=== PATIENT | female | born 1955 | race American Indian/Alaskan Native ===

== ENCOUNTER 2021-10-09 12:42 | Emergency (ER) | payer MEDICARE, OTHER ==
[~2021-10-09] VITALS: Ht 165.1 cm; Wt 54.0 kg
[~2021-10-09 12:42] MED LIST: AZIT500 PO; CLON.1 PO; Catapres0.1 MG PO; DIAZ10 PO; DIAZ5; DIAZ5 PO; DIPATR PO; ESCI10 PO; ESTR.625 PO; ESTR2 PO; FLUO10 PO; GUAI600T33; HYDACE10B PO; HYDACE5; HYDACE5 PO; HYDCHL25 PO; IBUP400 PO; OXYACE5T; OXYC10ER PO; OXYC10TA19 PO; OXYC5 PO; PROC10 PO; PROC25S PR; PROM25 PO; RXPROM25 PO; SPIHYD PO; Sudogest30 MG PO; WATER PILL; Xanax0.5 MG PO; Zofran Odt4 MG SL; [UNRECOGNIZED DRUG - OTHER]
[2021-10-09] MEDS ORDERED: AMOCLA875 PO (14:13)
== END 2021-10-09 14:17 | disposition home or self-care (01) ==
LOC: ER 12:42
DX: J32.9 Chronic sinusitis, unspecified (principal); Z88.2 Allergy status to sulfonamides; Z79.899 Other long term (current) drug therapy; J44.9 Chronic obstructive pulmonary disease, unspecified; I10 Essential (primary) hypertension; F43.10 Post-traumatic stress disorder, unspecified; F17.200 Nicotine dependence, unspecified, uncomplicated
CPT/HCPCS: 99283

== ENCOUNTER 2023-07-31 16:00 | Emergency (ER) | payer MEDICARE, OTHER ==
[~2023-07-31] VITALS: Ht 165.1 cm; Wt 47.6 kg
[~2023-07-31 16:00] MED LIST changes: +AMOCLA875 PO
[2023-07-31 16:51] LABS: BASOPHILS ABSOLUTE AUTO 0.03 K/mm3 (0.00-0.23); BASOPHILS PERCENT AUTO 0 % (0-2); EOSINOPHILS ABSOLUTE AUTO 0.01 K/mm3 (0.00-0.68); EOSINOPHILS PERCENT AUTO 0 % (0-6); Hematocrit 44.5 % (33.0-51.0); Hemoglobin 15.2 g/dL (11.5-16.0); IMMATURE GRAN ABSOLUTE AUTO 0.02 K/mm3 (0.00-0.10); IMMATURE GRAN PERCENT AUTO 0 % (0-1); LYMPHOCYTES ABSOLUTE AUTO 1.21 K/mm3 (0.84-5.20); LYMPHOCYTES PERCENT AUTO 16 % (21-46); MONOCYTES ABSOLUTE AUTO 0.46 K/mm3 (0.16-1.47); MONOCYTES PERCENT AUTO 6 % (4-13); Mean Corpuscular HGB 28.4 pg (26.0-34.0); Mean Corpuscular HGB Conc 34.2 g/dL (31.5-36.5); Mean Corpuscular Volume 83 fL (80-100); Mean Platelet Volume 9.1 fL (9.1-12.4); NEUTROPHILS ABSOLUTE AUTO 5.84 K/mm3 (1.96-9.15); NEUTROPHILS PERCENT AUTO 77 % (41-73); Platelet Count 292 K/mm3 (150-400); RDW Coefficient Variation 13.1 % (11.7-14.2); RDW Standard Deviation 39.2 fL (35.1-46.3); Red Blood Cell Count 5.35 M/mm3 (3.80-5.20); White Blood Cell Count 7.57 K/mm3 (4.00-11.30)
[2023-07-31 17:37] LABS: Albumin, Blood 3.4 g/dL (3.4-5.0); Albumin/Globulin Ratio 0.8 (0.8-1.8); Bilirubin, Total 0.7 mg/dL (0.1-1.0); Bun/Creatinine Ratio 28.6 (12.0-20.0); Calcium, Blood 9.4 mg/dL (8.5-10.1); Creatinine, Blood 0.77 mg/dL (0.40-1.00); Globulin, Blood 4.4 g/dL (2.2-4.0); Potassium, Blood 3.3 mmol/L (3.5-5.5); Total Protein, Blood 7.8 g/dL (6.4-8.2)
[2023-07-31] MEDS ORDERED: Zithromax250 MG PO (19:10)
[2023-07-31] MEDS ORDERED: Prednisone20 MG PO (19:10)
[2023-07-31] MEDS ORDERED: ALBUTEROL2.5 MG/0.5 INH (19:10)
[2023-07-31 19:15] VITALS: BP 122/82
== END 2023-07-31 19:24 | disposition home or self-care (01) ==
LOC: ER 16:00
PROVIDERS: Physician Assistant
DX: J44.1 Chronic obstructive pulmonary disease with (acute) exacerbation (principal); I10 Essential (primary) hypertension; F31.9 Bipolar disorder, unspecified; Z88.2 Allergy status to sulfonamides; Z79.899 Other long term (current) drug therapy
CPT/HCPCS: 71046; 80053; 85025; 94640; 94664; 96374; 99285-25; A9270; J2930; J7512

== ENCOUNTER 2023-09-13 13:33 | Emergency (ER) | payer MEDICARE, OTHER ==
[~2023-09-13] VITALS: Ht 165.1 cm; Wt 56.7 kg
[~2023-09-13 13:33] MED LIST changes: +ALBUTEROL2.5 MG/0.5 INH; +Prednisone20 MG PO; +Zithromax250 MG PO
[2023-09-13] MEDS ORDERED: HYDHCL25 PO (15:48)
[2023-09-13] MEDS ORDERED: HyDROXyzine HCl 25 MG Tab PO ONE (15:50)
[2023-09-13 15:51] VITALS: BP 139/90
== END 2023-09-13 15:50 | disposition home or self-care (01) ==
LOC: ER 13:33
DX: F41.9 Anxiety disorder, unspecified (principal); F17.200 Nicotine dependence, unspecified, uncomplicated; J44.9 Chronic obstructive pulmonary disease, unspecified; I10 Essential (primary) hypertension; F31.9 Bipolar disorder, unspecified; M79.7 Fibromyalgia; M19.90 Unspecified osteoarthritis, unspecified site; F43.10 Post-traumatic stress disorder, unspecified; Z79.2 Long term (current) use of antibiotics; Z79.52 Long term (current) use of systemic steroids; Z79.899 Other long term (current) drug therapy; Z88.2 Allergy status to sulfonamides
CPT/HCPCS: 99282; A9270

== ENCOUNTER 2023-11-14 07:27 | Emergency (ER) | payer MEDICARE, OTHER ==
[~2023-11-14] VITALS: Ht 165.1 cm; Wt 48.5 kg
[~2023-11-14 07:27] MED LIST changes: +ALPR.25 PO; +HYDHCL25 PO; +Percocet 5-3251 EACH PO
[2023-11-14] MEDS ORDERED: HYDROmorphone HCl/Pf 1MG SYR IV ONE (07:50)
[2023-11-14 08:03] LABS: BASOPHILS ABSOLUTE AUTO 0.07 K/mm3 (0.00-0.23); BASOPHILS PERCENT AUTO 1 % (0-2); EOSINOPHILS ABSOLUTE AUTO 0.28 K/mm3 (0.00-0.68); EOSINOPHILS PERCENT AUTO 2 % (0-6); Hematocrit 41.9 % (33.0-51.0); Hemoglobin 14.5 g/dL (11.5-16.0); IMMATURE GRAN ABSOLUTE AUTO 0.06 K/mm3 (0.00-0.10); IMMATURE GRAN PERCENT AUTO 1 % (0-1); LYMPHOCYTES ABSOLUTE AUTO 1.95 K/mm3 (0.84-5.20); LYMPHOCYTES PERCENT AUTO 15 % (21-46); MONOCYTES ABSOLUTE AUTO 0.63 K/mm3 (0.16-1.47); MONOCYTES PERCENT AUTO 5 % (4-13); Mean Corpuscular HGB 28.5 pg (26.0-34.0); Mean Corpuscular HGB Conc 34.6 g/dL (31.5-36.5); Mean Corpuscular Volume 82 fL (80-100); Mean Platelet Volume 8.8 fL (9.1-12.4); NEUTROPHILS ABSOLUTE AUTO 9.78 K/mm3 (1.96-9.15); NEUTROPHILS PERCENT AUTO 77 % (41-73); Platelet Count 440 K/mm3 (150-400); RDW Coefficient Variation 13.7 % (11.7-14.2); RDW Standard Deviation 41.3 fL (35.1-46.3); Red Blood Cell Count 5.09 M/mm3 (3.80-5.20); White Blood Cell Count 12.77 K/mm3 (4.00-11.30)
[2023-11-14] MEDS ORDERED: MONT10T PO (08:13)
[2023-11-14] MEDS ORDERED: ESCI10 PO (08:13)
[2023-11-14 08:22] LABS: Albumin, Blood 3.5 g/dL (3.4-5.0); Albumin/Globulin Ratio 0.9 (0.8-1.8); Bilirubin, Total 0.5 mg/dL (0.1-1.0); Bun/Creatinine Ratio 27.7 (12.0-20.0); Calcium, Blood 9.7 mg/dL (8.5-10.1); Creatinine, Blood 0.83 mg/dL (0.40-1.00); Globulin, Blood 4.1 g/dL (2.2-4.0); Potassium, Blood 3.2 mmol/L (3.5-5.5); Total Protein, Blood 7.6 g/dL (6.4-8.2)
[2023-11-14 09:26] VITALS: BP 145/102
[2023-11-14 10:08] LABS: Source, Urine Clean Catch
[2023-11-14 10:15] LABS: Appearance, Urine Clear (Clear); Bilirubin, Urine Neg (Neg); Blood, Urine 2+ (Neg); Color, Urine Yellow (P-Yellow); Glucose Qualitative, Urine Neg (Neg); Ketones, Urine Neg (Neg); Leukocyte Esterase, Urine Neg (Neg); Nitrite, Urine Neg (Neg); Protein, Urine 2+ (Neg); Urobilinogen, Urine NORM (Normal)
[2023-11-14 10:23] LABS: Bacteria Rare /hpf; Squamous Epithelial Cells Few /hpf (Few); White Blood Cells, Urine 0-2 /hpf (0-5)
[2023-11-14] MEDS ORDERED: Lidocaine 4% 1 Patch TOP ONE (11:05)
[2023-11-14] MEDS ORDERED: Cyclobenzaprine HCl 10 MG Tab PO ONE (11:05)
[2023-11-14] MEDS ORDERED: Acetaminophen 325 MG TABLET PO PRN (12:30)
[2023-11-14] MEDS ORDERED: Potassium Chloride 20 MEQ TabCR PO ONE (13:00)
[2023-11-14] MEDS ORDERED: Sennosides 8.6 MG Tab PO SCH (21:00)
[2023-11-14] MEDS ORDERED: Docusate Sodium 100 MG Cap PO SCH (21:00)
[2023-11-15] MEDS ORDERED: Enoxaparin 40 MG/0.4 ML SYR SC SCH (09:00)
== END 2023-11-14 12:31 | disposition home or self-care (01) ==
LOC: ER 07:27
PROVIDERS: Emergency Medicine
DX: R07.9 Chest pain, unspecified (principal); R10.12 Left upper quadrant pain; I10 Essential (primary) hypertension; J44.89 Other specified chronic obstructive pulmonary disease; F43.10 Post-traumatic stress disorder, unspecified; F17.200 Nicotine dependence, unspecified, uncomplicated; Z88.8 Allergy status to other drugs, medicaments and biological substances; Z88.2 Allergy status to sulfonamides
CPT/HCPCS: 71045; 74177; 80053; 81001; 84484; 85025; 93005; 93010; 96374-59; 99285-25; A9270; J1170; Q9967

== ENCOUNTER 2024-01-15 16:36 | Emergency (ER) | payer MEDICARE, OTHER ==
[~2024-01-15] VITALS: Ht 165.1 cm; Wt 47.6 kg
[~2024-01-15 16:36] MED LIST changes: +MONT10T PO
[2024-01-15 16:54] VITALS: BP 122/98
== END 2024-01-15 19:10 | disposition home or self-care (01) ==
LOC: ER 16:36
DX: M19.032 Primary osteoarthritis, left wrist (principal); R20.2 Paresthesia of skin; F43.10 Post-traumatic stress disorder, unspecified; J45.909 Unspecified asthma, uncomplicated; J44.9 Chronic obstructive pulmonary disease, unspecified; I10 Essential (primary) hypertension; F17.200 Nicotine dependence, unspecified, uncomplicated; Z87.81 Personal history of (healed) traumatic fracture; Z79.899 Other long term (current) drug therapy; Z88.2 Allergy status to sulfonamides; Z88.8 Allergy status to other drugs, medicaments and biological substances
CPT/HCPCS: 73110; 99283-25

== ENCOUNTER 2025-06-13 09:23 | Inpatient (IN) | payer MEDICARE, OTHER ==
[~2025-06-13] VITALS: Ht 162.6 cm; Wt 40.2 kg
[2025-06-13] MEDS ORDERED: Albuterol 2.5 MG/3 ML VIAL INH SCH (09:50)
[2025-06-13] MEDS ORDERED: CefTRIAXone Sodium 1,000 MG in NS 50 ML IV ONE (09:50)
[2025-06-13 09:53] LABS: BASOPHILS ABSOLUTE AUTO 0.02 K/mm3 (0.00-0.23); BASOPHILS PERCENT AUTO 0 % (0-2); EOSINOPHILS ABSOLUTE AUTO 0.01 K/mm3 (0.00-0.68); EOSINOPHILS PERCENT AUTO 0 % (0-6); Hematocrit 43.1 % (33.0-51.0); Hemoglobin 14.5 g/dL (11.5-16.0); IMMATURE GRAN ABSOLUTE AUTO 0.05 K/mm3 (0.00-0.10); IMMATURE GRAN PERCENT AUTO 1 % (0-1); LYMPHOCYTES ABSOLUTE AUTO 1.37 K/mm3 (0.84-5.20); LYMPHOCYTES PERCENT AUTO 17 % (21-46); MONOCYTES ABSOLUTE AUTO 0.37 K/mm3 (0.16-1.47); MONOCYTES PERCENT AUTO 5 % (4-13); Mean Corpuscular HGB Conc 33.6 g/dL (31.5-36.5); Mean Corpuscular Volume 86 fL (80-100); NEUTROPHILS ABSOLUTE AUTO 6.30 K/mm3 (1.96-9.15); NEUTROPHILS PERCENT AUTO 78 % (41-73); NRBC ABSOLUTE 0.00 K/mm3 (0.00-0.02); NRBC Auto 0.0 /100 WBC (0.0-0.2); Platelet Count 258 K/mm3 (150-400); RDW Coefficient Variation 13.1 % (11.7-14.2); RDW Standard Deviation 41.1 fL (35.1-46.3)
[2025-06-13 10:24] LABS: Alanine Aminotransfer (ALT/SGP 25.0 U/L (12-78); Albumin, Blood 3.0 g/dL (3.4-5.0); Albumin/Globulin Ratio 0.8 (0.8-1.8); Anion Gap 9.0 mmol/L (3-11); Aspartate Aminotrans (AST/SGOT 54.0 U/L (12-37); Bilirubin, Total 0.7 mg/dL (0.1-1.0); Blood Urea Nitrogen 24.0 mg/dL (8-24); CO2, Blood 28.0 mmol/L (21-32); Calcium, Blood 9.0 mg/dL (8.5-10.1); Chloride, Blood 98.0 mmol/L (98-108); Creatinine, Blood 0.71 mg/dL (0.40-1.00); Globulin, Blood 3.9 g/dL (2.2-4.0); Glucose, Blood 124.0 mg/dL (70-99); Potassium, Blood 3.6 mmol/L (3.5-5.5); Sodium, Blood 131.0 mmol/L (136-145); Total Protein, Blood 6.9 g/dL (6.4-8.2)
[2025-06-13 11:26] LABS: Influenza A, PCR NEGATIVE (NEGATIVE); Influenza B, PCR NEGATIVE (NEGATIVE); Resp Syncytial Virus, PCR NEGATIVE (NEGATIVE)
[2025-06-13 11:34] LABS: SARS-Cov-2 (COVID-19) PCR, MMC POSITIVE (NEGATIVE)
[2025-06-13] MEDS ORDERED: DIAZEPAM2 M2 PO (11:59)
[2025-06-13] MEDS ORDERED: HYDCHL25 PO (12:00)
[2025-06-13] MEDS ORDERED: HYDROcodone 5-APAP 325 TAB PO PRN (12:35)
[2025-06-13] MEDS ORDERED: Ipratropium/Albuterol SulF 2.5-0.5MG/3 ML Amp INH SCH (12:45)
[2025-06-13] MEDS ORDERED: NS 1,000 ML IV SCH (13:00)
[2025-06-13] MEDS ORDERED: Remdesivir (EUA) 200 MG in NS 250 ML IV ONE (13:25)
[2025-06-13] MEDS ORDERED: NS 1,000 ML IV ONE (14:21)
[2025-06-13 14:23] VITALS: BP 142/91
--- NOTE | 2025-06-13 18:44 | NUR ---
SHIFT SUMMARY PATIENT ALERT AND ORIENTED X4. PATIENT MAKE NEEDS KNOWN. PLEASANT AND COOPERATIVE WITH CARE. NO ACUTE CHANGE. INFUSING NS AT 75ML/HR. PATIENT ON SBA D/T SOB, LINES/CORDS ON 3.5 L/HIGH FLOW NC. SELF REPOSITION DURING SHIFT. BED LOCKED AND IN LOWEST POSITION, CALL LIGHT WITHIN REACH.
[2025-06-13 19:41] VITALS: BP 163/114
[2025-06-13] MEDS ORDERED: HydrALAZINE HCl 20 MG / ML 1ML Vial IV ONE (20:55)
[2025-06-13] MEDS ORDERED: Lactobacil 2-S.Thermo-Bifido 1 1 Cap PO SCH (21:00)
[2025-06-13 21:37] LABS: Alanine Aminotransfer (ALT/SGP 25.0 U/L (12-78); Albumin, Blood 2.9 g/dL (3.4-5.0); Albumin/Globulin Ratio 0.8 (0.8-1.8); Anion Gap 8.0 mmol/L (3-11); Aspartate Aminotrans (AST/SGOT 30.0 U/L (12-37); Bilirubin, Total 0.5 mg/dL (0.1-1.0); Blood Urea Nitrogen 31.0 mg/dL (8-24); CO2, Blood 33.0 mmol/L (21-32); Calcium, Blood 8.7 mg/dL (8.5-10.1); Chloride, Blood 98.0 mmol/L (98-108); Creatinine, Blood 0.81 mg/dL (0.40-1.00); Globulin, Blood 3.7 g/dL (2.2-4.0); Glucose, Blood 174.0 mg/dL (70-99); Potassium, Blood 3.1 mmol/L (3.5-5.5); Sodium, Blood 136.0 mmol/L (136-145); Total Protein, Blood 6.6 g/dL (6.4-8.2)
[2025-06-13 21:55] VITALS: BP 144/79
[2025-06-14 00:04] VITALS: BP 146/80
--- NOTE | 2025-06-14 03:04 | NUR ---
SHIFT SUMMARY: PT AOX4. BP WAS ELEVATED AT 163/114, ONE TIME HYDRALAZINE GIVEN. PT STATED THAT SHE HASNT TAKEN HER BP MEDICATION FOR THE LAST 4 DAYS AND THAT SHE WILL TAKE IT NEEDED. EDUCATED ON THE DANGERS OF NOT TAKING MEDICATION PRESCRIBED. BP LOWERED TO 146/80. PT IS RESTING IN BED. NO COMPLAINTS OF PAIN. PT IS ON 4L O2 VIA NC. CALL LIGHT IS WITHIN REACH. BED IS LOW AN LOCKED.
[2025-06-14 04:41] VITALS: BP 150/85
[2025-06-14 05:11] LABS: Hematocrit 36.3 % (33.0-51.0); Hemoglobin 12.1 g/dL (11.5-16.0); Mean Corpuscular HGB Conc 33.3 g/dL (31.5-36.5); Mean Corpuscular Volume 86 fL (80-100); NRBC ABSOLUTE 0.00 K/mm3 (0.00-0.02); NRBC Auto 0.0 /100 WBC (0.0-0.2); Platelet Count 227 K/mm3 (150-400); RDW Coefficient Variation 13.2 % (11.7-14.2); RDW Standard Deviation 41.1 fL (35.1-46.3)
[2025-06-14 05:47] LABS: BASOPHILS ABSOLUTE MAN 0.00 K/mm3 (0.00-0.23); BASOPHILS PERCENT MAN 0 % (0-2); EOSINOPHILS ABSOLUTE MAN 0.00 K/mm3 (0.00-0.68); EOSINOPHILS PERCENT MAN 0 % (0-6); LYMPHOCYTES ABSOLUTE MAN 0.72 K/mm3 (0.84-5.20); LYMPHOCYTES PERCENT MAN 12 % (21-46); MONOCYTES ABSOLUTE MAN 0.18 K/mm3 (0.16-1.47); MONOCYTES PERCENT MAN 3 % (4-13); NEUTROPHILS ABSOLUTE MAN 5.15 K/mm3 (1.96-9.15); SEG NEUTROPHILS PERCENT MAN 85 % (41-73)
[2025-06-14 06:00] LABS: Anion Gap 10.0 mmol/L (3-11); Blood Urea Nitrogen 31.0 mg/dL (8-24); CO2, Blood 28.0 mmol/L (21-32); Calcium, Blood 8.7 mg/dL (8.5-10.1); Chloride, Blood 101.0 mmol/L (98-108); Creatinine, Blood 0.67 mg/dL (0.40-1.00); Glucose, Blood 169.0 mg/dL (70-99); Magnesium, Blood 1.9 mg/dL (1.6-2.4); Phosphorus, Blood 2.7 mg/dL (2.5-4.9); Potassium, Blood 3.0 mmol/L (3.5-5.5); Sodium, Blood 136.0 mmol/L (136-145)
[2025-06-14 07:55] VITALS: BP 151/84
[2025-06-14] MEDS ORDERED: CefTRIAXone Sodium 1,000 MG in NS 100 ML IV SCH (09:00)
[2025-06-14] MEDS ORDERED: Multivitamins 1 Tab PO SCH (09:00)
[2025-06-14] MEDS ORDERED: Dexamethasone Sodium Phosphate 4 MG/ML 1ML Vial IV SCH (09:00)
[2025-06-14] MEDS ORDERED: Enoxaparin 40 MG/0.4 ML SYR SC SCH (09:00)
[2025-06-14] MEDS ORDERED: Remdesivir (EUA) 100 MG in NS 250 ML IV SCH (12:00)
[2025-06-14 19:13] VITALS: BP 146/83
--- NOTE | 2025-06-15 03:40 | NUR ---
SHIFT SUMMARY: AOX4. VSS, ON RA. LUNG SOUNDS ARE DIMINISHED WITH SOME WHEEZING. PT STATED, "FEELING A LOT BETTER." CALL LIGHT IS WITHIN REACH. BED IS LOW AND LOCKED.
[2025-06-15 04:30] VITALS: BP 145/84
[2025-06-15 06:07] LABS: Hematocrit 35.3 % (33.0-51.0); Hemoglobin 11.8 g/dL (11.5-16.0); Mean Corpuscular HGB Conc 33.4 g/dL (31.5-36.5); Mean Corpuscular Volume 86 fL (80-100); NRBC ABSOLUTE 0.00 K/mm3 (0.00-0.02); NRBC Auto 0.0 /100 WBC (0.0-0.2); Platelet Count 247 K/mm3 (150-400); RDW Coefficient Variation 13.2 % (11.7-14.2); RDW Standard Deviation 41.3 fL (35.1-46.3)
[2025-06-15 06:31] LABS: BASOPHILS ABSOLUTE MAN 0.00 K/mm3 (0.00-0.23); BASOPHILS PERCENT MAN 0 % (0-2); EOSINOPHILS ABSOLUTE MAN 0.00 K/mm3 (0.00-0.68); EOSINOPHILS PERCENT MAN 0 % (0-6); LYMPHOCYTES % ATYPICAL MANUAL 1 % (0-0); LYMPHOCYTES ABSOLUTE MAN 0.85 K/mm3 (0.84-5.20); LYMPHOCYTES PERCENT MAN 9 % (21-46); MONOCYTES ABSOLUTE MAN 0.17 K/mm3 (0.16-1.47); MONOCYTES PERCENT MAN 2 % (4-13); NEUTROPHILS ABSOLUTE MAN 7.54 K/mm3 (1.96-9.15); SEG NEUTROPHILS PERCENT MAN 88 % (41-73)
[2025-06-15 06:35] LABS: Anion Gap 9.0 mmol/L (3-11); Blood Urea Nitrogen 20.0 mg/dL (8-24); CO2, Blood 28.0 mmol/L (21-32); Calcium, Blood 8.8 mg/dL (8.5-10.1); Chloride, Blood 101.0 mmol/L (98-108); Creatinine, Blood 0.57 mg/dL (0.40-1.00); Glucose, Blood 111.0 mg/dL (70-99); Magnesium, Blood 1.8 mg/dL (1.6-2.4); Phosphorus, Blood 2.2 mg/dL (2.5-4.9); Potassium, Blood 3.2 mmol/L (3.5-5.5); Sodium, Blood 135.0 mmol/L (136-145)
[2025-06-15] MEDS ORDERED: Rocuronium Bromide 10 MG/ML 5ML Injection IV ONE (06:58)
[2025-06-15] MEDS ORDERED: Midazolam HCl 1MG / ML 2ML Vial IV ONE (06:58)
[2025-06-15] MEDS ORDERED: Potassium Phosphate Dibasic 15 MM in Dextrose 5% 250 ML IV STA (07:13)
[2025-06-15 08:00] VITALS: BP 143/93
[2025-06-15] MEDS ORDERED: NS 250 ML IV PRN (12:35)
[2025-06-15 16:05] VITALS: BP 182/113
--- NOTE | 2025-06-15 17:49 | NUR ---
SHIFT SUMMARY PT IS A/OX4. ANXIOUS. SBA. PLACED ON 2L NC THIS MORNING, SATS MAINTAINING >92% ON CONT PULSE OX. PT CALLS APPROPRIALTELY USING THE CALL LIGHT.
[2025-06-15 19:49] VITALS: BP 155/111
--- NOTE | 2025-06-15 21:35 | NUR ---
BLOOD PRESSURE NS BP 155/111, DOWN FROM 182/113 EARLIER. REUSING MEDS. VOICED ANXIETY RE MEDS. MD NOTIFIED AND VOICED HE UNDERSTOOD, AND TO MONITOR. AND ALSO VOICED TO MONITOR BP, AND DOC THAT PT WAS REFUSING MEDS. WHILE ON PHONE WITH , PT WAS CALLING FOR ASSIST, ANOTHER RN VOICED SHE WNATED TO SEE ME. UPON ARRIVAL AT ROOM, PT AGREED TO TAKE PO PRN VALIUM. WILL RECHECK BP LATER. PT REMAINS ON O2 PER NC. ISOLATION PRECAUTIONS CONTINUE.
[2025-06-15 22:50] VITALS: BP 200/158
[2025-06-15] MEDS ORDERED: Metoprolol Tartrate 1 MG/ML 5 ML VIAL IV PRN (23:10)
[2025-06-15] MEDS ORDERED: LORazepam 2 MG/ML 1ML Injection IV ONE (23:10)
[2025-06-16] VITALS (72 sets, daily range): BP systolic 55–165; BP diastolic 45–124
--- NOTE | 2025-06-16 00:48 | NUR ---
BP, ANXIETY MD NOTIFIED OF ANXIETY, HIGH BP AND HR. MD ORDERED IV ATIVAN 1 MG X1 AND IV LOPRESSOR 5 MG (Q6 PRN). MEDS ADMIN. POST MED BP 160/133. PLACED ON TELE. ANXIETY INCREASING. CHARGE NURSE NOTIFIED. CALL PLACED TO MD TRIAGE ASSISTANT FOR POSSIBLE TRANSFER TO HIGHER LEVEL OF CARE. SEE MD NOTATIONS. CHARGE NURSE REPORTED MD NOTIFIED AND POSSIBLE TRANSFER TO HIGHER LEVEL OF CARE. WILL CONT TO MONITOR
[2025-06-16] MEDS ORDERED: LORazepam 2 MG/ML 1ML Injection ONE ×2 (01:12→01:27)
[2025-06-16] MEDS ORDERED: LORazepam 2 MG/ML 1ML Injection IV ONE ×2 (01:15→01:35)
[2025-06-16 01:17] LABS: BASOPHILS ABSOLUTE AUTO 0.04 K/mm3 (0.00-0.23); BASOPHILS PERCENT AUTO 0 % (0-2); EOSINOPHILS ABSOLUTE AUTO 0.00 K/mm3 (0.00-0.68); EOSINOPHILS PERCENT AUTO 0 % (0-6); Hematocrit 44.7 % (33.0-51.0); Hemoglobin 14.8 g/dL (11.5-16.0); IMMATURE GRAN ABSOLUTE AUTO 0.23 K/mm3 (0.00-0.10); IMMATURE GRAN PERCENT AUTO 1 % (0-1); LYMPHOCYTES ABSOLUTE AUTO 2.48 K/mm3 (0.84-5.20); LYMPHOCYTES PERCENT AUTO 10 % (21-46); MONOCYTES ABSOLUTE AUTO 1.29 K/mm3 (0.16-1.47); MONOCYTES PERCENT AUTO 5 % (4-13); Mean Corpuscular HGB Conc 33.1 g/dL (31.5-36.5); Mean Corpuscular Volume 87 fL (80-100); NEUTROPHILS ABSOLUTE AUTO 19.83 K/mm3 (1.96-9.15); NEUTROPHILS PERCENT AUTO 83 % (41-73); NRBC ABSOLUTE 0.00 K/mm3 (0.00-0.02); NRBC Auto 0.0 /100 WBC (0.0-0.2); Platelet Count 495 K/mm3 (150-400); RDW Coefficient Variation 13.2 % (11.7-14.2); RDW Standard Deviation 42.5 fL (35.1-46.3)
[2025-06-16 01:21] LABS: pH Blood Venous 7.41 (7.34-7.37)
[2025-06-16 01:33] LABS: Magnesium, Blood 2.0 mg/dL (1.6-2.4)
--- NOTE | 2025-06-16 01:37 | NUR ---
TRANSFER TO ICU ANXIETY INCREASED, BP INCREASED, REPS INCREASED TO 36 AND O2 SATS DROPPED INTO THE 80'S. MANUEL CALLED, MD AND ICU STAFF AT BEDSIDE. PT AGITATED WITH STAFF AND INSTRUCTIONS RE NEED FOR CPAP. MD ASSESSED AND ORDERS FOR TRANSFER TO ICU (BED 6). REPORT GIVEN TO ICU NURSE.
[2025-06-16 01:38] LABS: Anion Gap 14.0 mmol/L (3-11); Blood Urea Nitrogen 25.0 mg/dL (8-24); CO2, Blood 25.0 mmol/L (21-32); Calcium, Blood 8.9 mg/dL (8.5-10.1); Chloride, Blood 98.0 mmol/L (98-108); Creatinine, Blood 0.76 mg/dL (0.40-1.00); Glucose, Blood 228.0 mg/dL (70-99); Phosphorus, Blood 5.5 mg/dL (2.5-4.9); Potassium, Blood 5.0 mmol/L (3.5-5.5); Sodium, Blood 132.0 mmol/L (136-145)
[2025-06-16] MEDS ORDERED: NS 1,000 ML IV ONE (02:27)
[2025-06-16] MEDS ORDERED: Cetylpyridinium Chloride 1 EA MISC MT SCH (03:45)
[2025-06-16] MEDS ORDERED: Cefepime HCl 1,000 MG in NS 100 ML IV SCH (03:53)
[2025-06-16] MEDS ORDERED: Hydrogen Peroxide 1.5 % Solution MT SCH (04:00)
[2025-06-16] MEDS ORDERED: Remdesivir (EUA) 100 MG in NS 250 ML IV SCH (04:09)
[2025-06-16] MEDS ORDERED: NS 500 ML IV ONE (04:30)
--- NOTE | 2025-06-16 04:34 | NUR ---
PATIENT WAS A RAPID RESPONSE ON MEDICAL FLOOR, BROUGHT TO ICU 6 AT 0120. WHEN PATIENT ARRIVED TO ICU SHE WAS VERY COMBATIVE, KICKING AND HITTING, ATTEMPTING TO GET OUT OF BED. WORK OF BREATHING WAS INCREASING AND PRECEDEX WAS IMMEDIATELY STARTED. DR. NAQVI AT BEDSIDE AND PRECEDEX TITRATED PER HIS ORDERS, SEE FLOW SHEET, WELL PRN MEDICATIONS GIVEN FOR SEDATION PER EMAR. PATIENT CONTINUED TO BE COMBATIVE AND WAS PLACED IN RESTRAINTS. RR REMAINS IN THE 30s ON 7L VIA NC, SP02 >93%, LS COARSE. SECOND IV WAS ESTABLISHED. DECISION TO INTUBATE PATIENT PER DR. NAQVI. DUE TO PATIENTS COMBATIVE BEHAVIOR BOTH IVs WERE NO LONGER PATENT. 0210- ZYPREXA 10MG IM GIVEN. 0212- VERSED 2MG IM GIVEN. 0219- IO PLACED IN RIGHT LOWER LEG 0220- ETOMIDATE 10 MG 0221- 50 MG 0222- PATIENT INTUBATED ETT 8.0, 24 GUMS 0228- NS BLOUS OF 500 MLS GIVEN VENT SETTINGS AC VC 16/350/5/100% RR 16 PLACED CENTRAL LINE IN RIGHT IJ, AND CHEST X-RAY CONFIRMED PLACEMENT. IO REMOVED. PATIENT STARTED ON LOW DOSE PROPOFOL FOR SEDATION. HENDRICKS CATHETER PLACED FOR STRICT I&Os. SON WAS UPDATED MULTIPLE TIMES OF PATIENTS MOVE TO ICU AND HER CONDITION.
[2025-06-16] MEDS ORDERED: NS 1,000 ML IV SCH (05:20)
--- NOTE | 2025-06-16 07:00 | NUR ---
ASSUMPTION OF CARE THIS RN TO ASSUME CARE OF PT AT 0700. PT IS RESTING ON BED AND APPEARS TO BE TOLERATIVE VENT. PT HAS PROPOFOL RUNNING AT 25MCG/KG/MIN, LEVOPHED AT 5MCG/MIN, AND NS TKO INFUSING TO RIJ CENTRAL LINE. PT ON VENT, SETTINGS 16/350/5/100%FIO2. 8.0 ETT, 24@GUMS. THICK CORTES SECRETION VIA TUBE. OG HOOKED TO LIS, BRIGHT GREEN OUTPUT. LUNGS COARSE/DIM. 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 PROVIDER GREEN ON UNIT AND NOTIFIED. PLAN FOR ADDITIONAL EKG. PT AFEBRILE. SMALL, PASTY BM-BROWN. YELLOW URINE DRAINING TO GRAVITY. MEPILEX TO PT SACRUM TO PROTECT SKIN INTEGRITY. PT IN BILATERAL UPPER WRIST RESTRAINTS. CALL LIGHT W/ IN REACH. CURTAIN LEFT OPEN FRO FREQUENT OBSERVATION. PLAN OF CARE ONGOING.
[2025-06-16] MEDS ORDERED: Pantoprazole Sodium 40 MG Injection IV SCH (09:00)
[2025-06-16] MEDS ORDERED: FentaNYL Citrate 50 MCG/ML 2 ML Injection IV PRN (11:25)
[2025-06-16 15:20] LABS: Anion Gap 10.0 mmol/L (3-11); Blood Urea Nitrogen 33.0 mg/dL (8-24); CO2, Blood 26.0 mmol/L (21-32); Calcium, Blood 8.3 mg/dL (8.5-10.1); Chloride, Blood 104.0 mmol/L (98-108); Creatinine, Blood 0.98 mg/dL (0.40-1.00); Glucose, Blood 146.0 mg/dL (70-99); Potassium, Blood 4.4 mmol/L (3.5-5.5); Sodium, Blood 136.0 mmol/L (136-145)
--- NOTE | 2025-06-16 16:57 | NUR ---
PT REMAINS A FULL CODE FOR NOW, MET WITH HER SON DMITRI AND HIS IN THE LOBBY. THEY V/U THAT THE PATIENT IS VERY ILL R/T END STAGE COPD AND COVID. PLAN TO CHECK IN AGAIN IN THE MORNING, GIVE UPDATE TO DMITRI. PT CURRENTLY ON VENTILATOR, STABLE AT THIS TIME.
--- NOTE | 2025-06-16 17:36 | NUR ---
SHIFT SUMMARY PT REMAINS ON VENT, APPEARS CALM ON BED. PT BECAME AGIATED AND RESTLESS TWICE DURING SHIFT REQUIRING TITRATION OF SEDATIVE AND PRN PAIN MEDICATION. PROPOFOL CURRENTLY RUNNING AT 40MCG/KG/MIN, LEVOPHED AT 5MCG/MIN. NS CONTINUES AT 100ML/HR. VENT SETTINGS AC/VC: 16/350/5/40% FIO2. THICK/CORTES SECRETIONS VIA ETT. LUNGS CLEAR/DIM. PT ON CONTINUOUS MONITOR- SINUS RHYTHM, RATE OF 70S W/ OCCASSIONAL PVC'S AND INVERTED T-WAVES OBSERVED. PROVIDER YESICA/DAMIÁN AWARE- PLAN TO REPEAT TROPONIN W/ AM LABS ON 06/17/25. PT AFEBRILE. HENDRICKS CATH IN PLACE AND DRAINING TO GRAVITY- MINIMAL OUTPUT TODAY. PROVIDER DAMIÁN AWARE. ONE SMALL, PASTY BM DURING SHIFT. PT TURNED Q2HRS AND MEPILEX TO COCCYX TO MAINTAIN SKIN INTEGRITY. PT SON DMITRI AND PT DAUGHTER IN LAW VISIT DURING TODAY AND SPOKE W/ CARE COORINATOR. CALL LIGHT W/ IN REACH. PLAN OF CARE ONGOING.
--- NOTE | 2025-06-16 20:02 | NUR ---
ASSUMED CARE AT 1900 PATIENT IS INTUBATED AND SEDATED ON PROPOFOL. ABLE TO NOD YES/NO TO QUESTIONS, FOLLOWS COMMANDS, RESPONDS TO VERBAL STIMULI. DENIES PAIN AT THIS TIME. A LITTLE RESTLESS IN BED. SP02 98% ON VENT AC VC 16/350/5/40%, RR 26. MODERATE AMOUNT OF CLEAR SECRETIONS. HR SR 70s-90s, LEVOPHED INFUSING TO MAINTAIN BP >65. HENDRICKS PATENT AND DRAINING SMALL AMOUNT OF YELLOW URINE TO GRAVIT. OG TO LIS APPROX 63 CM. SMALL AMOUNT OF GREEN BILE OUTPUT. PATIENT REPOSITIONED. CALL LIGHT IN REACH
[2025-06-17] VITALS (65 sets, daily range): BP systolic 86–159; BP diastolic 60–102
[2025-06-17 04:21] LABS: BASOPHILS ABSOLUTE AUTO 0.01 K/mm3 (0.00-0.23); BASOPHILS PERCENT AUTO 0 % (0-2); EOSINOPHILS ABSOLUTE AUTO 0.04 K/mm3 (0.00-0.68); EOSINOPHILS PERCENT AUTO 0 % (0-6); Hematocrit 35.2 % (33.0-51.0); Hemoglobin 11.6 g/dL (11.5-16.0); IMMATURE GRAN ABSOLUTE AUTO 0.08 K/mm3 (0.00-0.10); IMMATURE GRAN PERCENT AUTO 1 % (0-1); LYMPHOCYTES ABSOLUTE AUTO 1.51 K/mm3 (0.84-5.20); LYMPHOCYTES PERCENT AUTO 13 % (21-46); MONOCYTES ABSOLUTE AUTO 0.52 K/mm3 (0.16-1.47); MONOCYTES PERCENT AUTO 5 % (4-13); Mean Corpuscular HGB Conc 33.0 g/dL (31.5-36.5); Mean Corpuscular Volume 88 fL (80-100); NEUTROPHILS ABSOLUTE AUTO 9.07 K/mm3 (1.96-9.15); NEUTROPHILS PERCENT AUTO 81 % (41-73); NRBC ABSOLUTE 0.00 K/mm3 (0.00-0.02); NRBC Auto 0.0 /100 WBC (0.0-0.2); Platelet Count 259 K/mm3 (150-400); RDW Coefficient Variation 13.6 % (11.7-14.2); RDW Standard Deviation 43.8 fL (35.1-46.3)
[2025-06-17 06:10] LABS: Alanine Aminotransfer (ALT/SGP 30.0 U/L (12-78); Albumin, Blood 2.4 g/dL (3.4-5.0); Albumin/Globulin Ratio 0.7 (0.8-1.8); Anion Gap 7.0 mmol/L (3-11); Aspartate Aminotrans (AST/SGOT 26.0 U/L (12-37); Bilirubin, Total 0.6 mg/dL (0.1-1.0); Blood Urea Nitrogen 34.0 mg/dL (8-24); CO2, Blood 28.0 mmol/L (21-32); Calcium, Blood 8.2 mg/dL (8.5-10.1); Chloride, Blood 106.0 mmol/L (98-108); Creatinine, Blood 1.03 mg/dL (0.40-1.00); Globulin, Blood 3.6 g/dL (2.2-4.0); Glucose, Blood 98.0 mg/dL (70-99); Potassium, Blood 4.0 mmol/L (3.5-5.5); Sodium, Blood 137.0 mmol/L (136-145); Total Protein, Blood 6.0 g/dL (6.4-8.2)
--- NOTE | 2025-06-17 06:33 | NUR ---
SHIFT SUMMARY PATIENT REMAINS INTUBATED AND SEDATED ON PROPOFOL. FOLLOWING COMMANDS AND NODDING HEAD YES/NO TO QUESTIONS. SP02 97% ON VENT AC VC 16/350/5/40%. STRONG COUGH. THIS AM MODERATE TO LARGE AMOUNT OF THICK CORTES SPUTUM. HR SR 70s. LEVOPHED INFUSING TO MAINTAIN MAP >65. HENDRICKS PATENT AND DRAINING BR[place]FORD URINE TO GRAVITY. PATIENT REPOSITIONED Q2 HOURS. BED BATH DONE. CALL LIGHT IN REACH
--- NOTE | 2025-06-17 11:06 | NUR ---
PT UPDATE 1105- PT EXTUBATED TO 4L VIA NC BY RT REYMUNDO Read/ DR. ROBERT AT BEDSIDE. PT HAS STRONG COUGH AND IS FOLLOWING COMMANDS. RESTAINTS DC'D AT THIS TIME
--- NOTE | 2025-06-17 18:55 | NUR ---
SHIFT SUMMARY PT WAS EXTUBATED TO 4L VIA NC AT APPROX 1100 THIS AM. PT TOLERATED WELL. 02 TITRATED OFF AND PT ON ROOM AIR. STRONG COUGH W/ YELLOW SECRETIONS. PT USING SUCTION INDEPENDENTLY. USING CALL LIGHT APPROPRIATELY. ABLE TO MAKE NEEDS KNOWN W/ SOFT VOICE. PT SON, DMITRI, UPDATED PER PT REQUEST. LEVOPHED OFF PRIOR TO EXTUBATION AND RESTRAINTS DC'D. NSR ON MONITOR, RATE OF 80S. BP STABLE.W/ MAP>65. PT AFEBRILE. GOOD URINE OUTPUT TODAY. NO BM THIS SHIFT. PLAN FOR SPEECH EVAL TOMORROW. PLAN OF CARE ONGOING.
--- NOTE | 2025-06-17 19:53 | NUR ---
ASSUMED CARE AT APPROX 1900 PATIENT IS ALERT AND ORIENTED X4. LOW DOSE PRECEDEX INFUSING FOR ANXIETY, PATIENT TAKES PO DIAZEPAM AT HOME, CURRENTLY NPO DUE TO ASPIRATION RISK. SP02 93% ON RA, DENIES SOB, STRONG COUGH. COUGHING UP SMALL AMOUNT OF THICK CORTES SPUTUM. HR SR 90s, BP STABLE. DENIES CP/PRESSURE. HENDRICKS PATENT AND DRAINING TO GRAVITY. PATIENT ABLE REPOSITION INDEPENDENTLY, ASSISTANCE NEEDED. CALL LIGHT IN REACH
[2025-06-18] VITALS (31 sets, daily range): BP systolic 120–194; BP diastolic 75–112
[2025-06-18 04:03] LABS: BASOPHILS ABSOLUTE AUTO 0.00 K/mm3 (0.00-0.23); BASOPHILS PERCENT AUTO 0 % (0-2); EOSINOPHILS ABSOLUTE AUTO 0.03 K/mm3 (0.00-0.68); EOSINOPHILS PERCENT AUTO 1 % (0-6); Hematocrit 32.4 % (33.0-51.0); Hemoglobin 11.0 g/dL (11.5-16.0); IMMATURE GRAN ABSOLUTE AUTO 0.07 K/mm3 (0.00-0.10); IMMATURE GRAN PERCENT AUTO 1 % (0-1); LYMPHOCYTES ABSOLUTE AUTO 0.85 K/mm3 (0.84-5.20); LYMPHOCYTES PERCENT AUTO 13 % (21-46); MONOCYTES ABSOLUTE AUTO 0.38 K/mm3 (0.16-1.47); MONOCYTES PERCENT AUTO 6 % (4-13); Mean Corpuscular HGB Conc 34.0 g/dL (31.5-36.5); Mean Corpuscular Volume 86 fL (80-100); NEUTROPHILS ABSOLUTE AUTO 5.21 K/mm3 (1.96-9.15); NEUTROPHILS PERCENT AUTO 80 % (41-73); NRBC ABSOLUTE 0.00 K/mm3 (0.00-0.02); NRBC Auto 0.0 /100 WBC (0.0-0.2); Platelet Count 218 K/mm3 (150-400); RDW Coefficient Variation 13.5 % (11.7-14.2); RDW Standard Deviation 42.5 fL (35.1-46.3)
[2025-06-18 04:44] LABS: Alanine Aminotransfer (ALT/SGP 25.0 U/L (12-78); Albumin, Blood 2.3 g/dL (3.4-5.0); Albumin/Globulin Ratio 0.7 (0.8-1.8); Anion Gap 9.0 mmol/L (3-11); Aspartate Aminotrans (AST/SGOT 20.0 U/L (12-37); Bilirubin, Total 0.7 mg/dL (0.1-1.0); Blood Urea Nitrogen 27.0 mg/dL (8-24); CO2, Blood 26.0 mmol/L (21-32); Calcium, Blood 8.2 mg/dL (8.5-10.1); Chloride, Blood 107.0 mmol/L (98-108); Creatinine, Blood 0.84 mg/dL (0.40-1.00); Globulin, Blood 3.5 g/dL (2.2-4.0); Glucose, Blood 76.0 mg/dL (70-99); Potassium, Blood 3.6 mmol/L (3.5-5.5); Sodium, Blood 138.0 mmol/L (136-145); Total Protein, Blood 5.8 g/dL (6.4-8.2)
--- NOTE | 2025-06-18 06:27 | NUR ---
SHIFT SUMMARY PATIENT REMAINS ALERT AND ORIENTED X4, ON MINIMAL PRECEDEX THROUGH THE NIGHT, THIS MORNING PATIENT REPORTING ANXIETY, INCREASED PRECEDEX. PATIENT STATES NOT BEING ABLE TO EAT IS MAKING HER ANXIOUS, SPEECH THERAPY IS ORDERED. SP02 96% ON 2L NC, LS COARSE, PATIENT HAS STRONG COUGH. DENIES SOB. HR SR 80s, BP STABLE. DENIES CP/PRESSURE. HENDRICKS REMOVED AND PUREWICK IN PLACE. PATIENT ABLE TO REPOSITON SELF. CALL LIGHT IN REACH
--- NOTE | 2025-06-18 10:40 | NUR ---
Spiritual Care Visit. Pt. is awake in her bed as she welcomed my visit. Pt. is pleasant. Facilitated a life review and considered matters of bibi and belief. Listened with empathy and a calming presence. Pt. displayed evidence of being encouraged and welcomed prayer. Prayed with the Pt. Pt. verbalized gratitude for the spiritual care visit.
--- NOTE | 2025-06-18 17:35 | NUR ---
SHIFT SUMMARY PT DID WELL THIS SHIFT. PT HAS REMAINED AWAKE, ALERT, AND ORIENTED. PT TITRATED FROM 2L O2 NC TO ROOM AIR. PT HAS DENIED PAIN OR DISCOMFORT. PT WITH SOME ANXIETY THIS MORNING RELATED TO BEING ABLE TO EAT AND DRINK AND RESTART HOME MEDS. PT CLEARED BY ST FOR PO INTAKE. HOME VALIUM RESTARTED AND PRECEDEX DISCONTINUED THIS AFTERNOON. CENTRAL LINE TO RIJ DC'D AND PG TO CHANCE PLACED THIS AFTERNOON. VITAL SIGNS HAVE REMAINED STABLE. PT WITH PUREWICK IN PLACE WITH LARGE UNMEASUREABLE VOID THIS AFTERNOON. PT ABLE TO REPOSITION SELF IN BED INDEPENDENTLY. NO FAMILY AT BEDSIDE. WILL CONTINUE TO MONITOR AND REPORT OFF TO ONCOMING RN.
[2025-06-19] VITALS (13 sets, daily range): BP systolic 126–191; BP diastolic 74–121
[2025-06-19 03:39] LABS: BASOPHILS ABSOLUTE AUTO 0.01 K/mm3 (0.00-0.23); BASOPHILS PERCENT AUTO 0 % (0-2); EOSINOPHILS ABSOLUTE AUTO 0.03 K/mm3 (0.00-0.68); EOSINOPHILS PERCENT AUTO 0 % (0-6); Hematocrit 33.5 % (33.0-51.0); Hemoglobin 11.3 g/dL (11.5-16.0); IMMATURE GRAN ABSOLUTE AUTO 0.08 K/mm3 (0.00-0.10); IMMATURE GRAN PERCENT AUTO 1 % (0-1); LYMPHOCYTES ABSOLUTE AUTO 0.67 K/mm3 (0.84-5.20); LYMPHOCYTES PERCENT AUTO 8 % (21-46); MONOCYTES ABSOLUTE AUTO 0.46 K/mm3 (0.16-1.47); MONOCYTES PERCENT AUTO 6 % (4-13); Mean Corpuscular HGB Conc 33.7 g/dL (31.5-36.5); Mean Corpuscular Volume 86 fL (80-100); NEUTROPHILS ABSOLUTE AUTO 6.85 K/mm3 (1.96-9.15); NEUTROPHILS PERCENT AUTO 85 % (41-73); NRBC ABSOLUTE 0.00 K/mm3 (0.00-0.02); NRBC Auto 0.0 /100 WBC (0.0-0.2); Platelet Count 283 K/mm3 (150-400); RDW Coefficient Variation 13.5 % (11.7-14.2); RDW Standard Deviation 42.5 fL (35.1-46.3)
[2025-06-19 04:06] LABS: Alanine Aminotransfer (ALT/SGP 24.0 U/L (12-78); Albumin, Blood 2.2 g/dL (3.4-5.0); Albumin/Globulin Ratio 0.6 (0.8-1.8); Anion Gap 10.0 mmol/L (3-11); Aspartate Aminotrans (AST/SGOT 20.0 U/L (12-37); Bilirubin, Total 0.4 mg/dL (0.1-1.0); Blood Urea Nitrogen 39.0 mg/dL (8-24); CO2, Blood 25.0 mmol/L (21-32); Calcium, Blood 8.2 mg/dL (8.5-10.1); Chloride, Blood 107.0 mmol/L (98-108); Creatinine, Blood 0.99 mg/dL (0.40-1.00); Globulin, Blood 3.7 g/dL (2.2-4.0); Glucose, Blood 116.0 mg/dL (70-99); Magnesium, Blood 1.8 mg/dL (1.6-2.4); Potassium, Blood 3.7 mmol/L (3.5-5.5); Sodium, Blood 138.0 mmol/L (136-145); Total Protein, Blood 5.9 g/dL (6.4-8.2)
--- NOTE | 2025-06-19 06:13 | NUR ---
SHIFT SUMMARY PATIENT AWAKE THOUGH SHIFT ALL NIGHT. PATIENT A&O X3 JUST THINKS WE ARE IN THE MONTH OF SEPTEMBER. PATIENT AFERIBLE THROUGH SHIFT. PATEINT ABLE TO GET UP TO BED SIDE COMMODE WITH ASSIST. HR 70-100'S AND SBP 150-170'S. PATIENT ON REGULAR DIET AND HAVING SNACKS AND DRINKS THROUGH OUT SHIFT. PATEINT HAS RIGTH UPPER ARM POWERGLIDE WITH NORMAL SALINE INFUSING @ TKO. PATIENT ON 2L VIA NC SATTING ABOVE 95%. CALL LIGHT WITHIN REACH.
--- NOTE | 2025-06-19 09:01 | NUR ---
UPDATE: ASSUMED CARE OF PT AT APPROX 0720. PT A/O X4, ABLE TO MAKE NEEDS KNOWN. ANXIOUS AT BASELINE AND PARTICULAR WITH CARE. ALL STRENGTH EQUAL BILATERALLY. SBA TO BSC THIS AM, PT ABLE TO VOID URINE. PT ON 2L NC, SATS >95%. DENIES SOB. NSR 80-100s, DENIES CHEST PAIN/PRESSURE. MAP >65. ALL OTHER VSS. DURING MEDICATION ADMINISTRATION PT REFUSED BUSPAR AND DEXAMETHASONE. PT ADIMITT ON RECIEVING HIGHER DOSE OF ORETIC. MD NICHOLS, CAME TO TALK WITH PT. AGREED TO D/C DEXAMETHASONE AND INCREASE ORETIC DOSE TO WHAT PT TAKES AT HOME. EMAR UPDATED. PT SWALLOWS WELL, ATE 75% OF BREAKFAST TODAY. PT LYING IN BED CALL IN REACH.
--- NOTE | 2025-06-19 09:30 | NUR ---
UPDATE: MD CAME TO BEDSIDE, PT AGREED TO TRY AMLODIPINE ONE TIME AND SEE HOW SHE FEELS AFTER. PRINTED PT EDUCATION ON MEDICATIONS. PT APPEARS ANXIOUS ABOUT THE MEDICATIONS SHE TAKES DUE TO A HISTORY OF INTERACTIONS.
--- NOTE | 2025-06-19 10:40 | NUR ---
UPDATE: PT MOVED TO ROOM PCU 13 VIA WHEELCHAIR. THIS RN REMAINS PRIMARY NURSE FOR PT AND FLOATED BACK TO PCU. ON THE WAY TO UNIT PT HAD A PANIC ATTACK, QUICKLY RESOLVED AFTER THERAPUTIC COMMUNICATION. MAP OF 129 UPON ARRIVAL TO UNIT DUE TO PTS INCREASED ANXIETY AND STRESS. OTHER VITAL SIGNS STABLE. SUCTION SETUP PER PT REQUEST. PT LYING IN BED, CALL IN REACH.
--- NOTE | 2025-06-19 12:32 | NUR ---
UPDATE: PT BLOOD PRESSURE SUSTAINING 170s, MADE AWARE. NO NEW ORDERS AT THIS TIME.
--- NOTE | 2025-06-19 15:32 | NUR ---
SHIFT SUMMARY: PT A/O X4, ABLE TO MAKE NEEDS KNOWN. ANXIOUS AT BASELINE, AND PARTICULAR WITH MEDICATIONS. PT STATES "I DONT WANT TO TAKE ANYTHING I DONT ALREADY TAKE AT HOME". STRENGTH EQUAL BILATERALLY. SBA IN ROOM WITH GAITBELT. ABLE TO WORK WITH PHYSICAL THERAPY TODAY. PT HAS REMAINED ON ROOM AIR FOR MOST OF DAY, SATS >90%. DENIES SOB. SR-ST 80-110S, DENIES CHEST PAIN/PRESSURE. PT HR INCREASES WHEN SHE WORKS HERSELF UP AND GETS ANXIOUS. BP ELEVATED THIS AFTERNOON, TRENDING BACK DOWN THIS EVENING TO 126/74 WHILE ASLEEP. PT LYING IN BED, CALL IN REACH. WILL REPORT TO ONCOMING RN.
--- NOTE | 2025-06-19 18:34 | NUR ---
SPiritual Care Visit Attempted Pt. is awake in bed but is on a phone call with her sister. Pt. verbalized that she expected to be discharged tomorrow and welcomed this plate driller to return in hte morning.
[2025-06-20 03:37] VITALS: BP 119/90
--- NOTE | 2025-06-20 03:46 | NUR ---
SHIFT SUMMARY PT IS A&OX4 ABLE TO VERBALIZE NEEDS AND CALLS APPROPRIATELY . ON O2 1L VIA NC. SPO2 >95%. SHES NSR-ST IN THE 80-100. BP WAS ELEVATED AT 183/92. SHE REFUSED ANY BP MEDS EXCEPT FOR HCTZ THAT SHE TAKES AT HOME. CALLED MD AND GOT A 1X ORDER. HCTZ WAS GIVEN AND BP RECHECK WAS 140/93.THIS MORNING HER BP IS 119/90. SHE STATED THAT SHES FEELING SO MUCH BETTER. SHE'S TOLERATING A REGULAR DIET. ABLE TO TAKE MEDS WHOLE IN WATER. REQUIRES 1 PERSON ASSIST WITH WALKER AND AMBULATES TO THE BATHROOM. POWERGLIDE INTACT TO RIGHT UPPER ARM WAS FLUSHED. BED IN LOWEST POSITION,, CALLS APPROPRIATELY AND IS ABLE TO ADVOCATE NEEDS EFFECTIVELY. REMAINS ON ISOLATION FOR COVID.
[2025-06-20 04:49] LABS: BASOPHILS ABSOLUTE AUTO 0.02 K/mm3 (0.00-0.23); BASOPHILS PERCENT AUTO 0 % (0-2); EOSINOPHILS ABSOLUTE AUTO 0.39 K/mm3 (0.00-0.68); EOSINOPHILS PERCENT AUTO 4 % (0-6); Hematocrit 36.8 % (33.0-51.0); Hemoglobin 12.5 g/dL (11.5-16.0); IMMATURE GRAN ABSOLUTE AUTO 0.12 K/mm3 (0.00-0.10); IMMATURE GRAN PERCENT AUTO 1 % (0-1); LYMPHOCYTES ABSOLUTE AUTO 1.60 K/mm3 (0.84-5.20); LYMPHOCYTES PERCENT AUTO 16 % (21-46); MONOCYTES ABSOLUTE AUTO 0.78 K/mm3 (0.16-1.47); MONOCYTES PERCENT AUTO 8 % (4-13); Mean Corpuscular HGB Conc 34.0 g/dL (31.5-36.5); Mean Corpuscular Volume 85 fL (80-100); NEUTROPHILS ABSOLUTE AUTO 6.89 K/mm3 (1.96-9.15); NEUTROPHILS PERCENT AUTO 70 % (41-73); NRBC ABSOLUTE 0.00 K/mm3 (0.00-0.02); NRBC Auto 0.0 /100 WBC (0.0-0.2); Platelet Count 352 K/mm3 (150-400); RDW Coefficient Variation 13.4 % (11.7-14.2); RDW Standard Deviation 42.0 fL (35.1-46.3)
[2025-06-20 05:19] LABS: Anion Gap 8.0 mmol/L (3-11); Blood Urea Nitrogen 33.0 mg/dL (8-24); CO2, Blood 29.0 mmol/L (21-32); Calcium, Blood 8.8 mg/dL (8.5-10.1); Chloride, Blood 101.0 mmol/L (98-108); Creatinine, Blood 0.83 mg/dL (0.40-1.00); Glucose, Blood 97.0 mg/dL (70-99); Magnesium, Blood 1.8 mg/dL (1.6-2.4); Potassium, Blood 3.4 mmol/L (3.5-5.5); Sodium, Blood 135.0 mmol/L (136-145)
[2025-06-20 09:15] VITALS: BP 140/88
--- NOTE | 2025-06-20 10:00 | NUR ---
ASSUMED CARE. PT A/O X 4 VERY PLEASENT, ISO FOR COVID, HOPING TO GO HOME TODAY. PT MAINTAINING O2 AT 94%,MON 1.5 LITERS, UP IN CHAIR AND FEEDING SELF BREAKFAST POTASSIUM GIVEN PO AND IV, PT VERY ANIMATED IN SPEECH AND HAVING CARDIAC IRREGULARITIES NOTED ON MONITOR, PT VSS.
[2025-06-20] MEDS ORDERED: Mag Sulfate 1 GM/D5% 100ML 100 ML IV STA (10:31)
[2025-06-20 11:35] VITALS: BP 162/100
[2025-06-20] MEDS ORDERED: POTCHL20ER PO (11:39)
--- NOTE | 2025-06-20 15:18 | NUR ---
PT DOING WELL GIVEN DISCHARGE ORDERS AWAITING FOR IV ELECTROLYTES TO FINISH INFUSING. HOME O2 AT BEDSIDE, SON SHOULD BE HERE TO PICK PT UP AROUND 1500.
== END 2025-06-20 15:42 | disposition home or self-care (01) | DRG 871 ==
LOC: ER 09:23 → MEDS 09:24 → ICUE 06-14 15:12 → MEDS 06-14 17:05 → ICUE 06-16 01:20 → PCU 06-19 10:05
PROVIDERS: Emergency Medicine; Family Medicine; Internal Medicine; Student in an Organized Health Care Education/Training Program; ADMIT Internal Medicine
PROC: XW033E5 Introduction of Remdesivir Anti-infective into Peripheral Vein, Percutaneous Approach, New Technology Group 5 (ICD-10-PCS; principal; 2025-06-13)
PROC: 3E03329 Introduction of Other Anti-infective into Peripheral Vein, Percutaneous Approach (ICD-10-PCS; 2025-06-13)
PROC: 3E0333Z Introduction of Anti-inflammatory into Peripheral Vein, Percutaneous Approach (ICD-10-PCS; 2025-06-14)
PROC: 8E0ZXY6 Isolation (ICD-10-PCS; 2025-06-14)
PROC: 3E033XZ Introduction of Vasopressor into Peripheral Vein, Percutaneous Approach (ICD-10-PCS; 2025-06-16)
PROC: 5A09357 Assistance with Respiratory Ventilation, Less than 24 Consecutive Hours, Continuous Positive Airway Pressure (ICD-10-PCS; 2025-06-16)
PROC: 0BH17EZ Insertion of Endotracheal Airway into Trachea, Via Natural or Artificial Opening (ICD-10-PCS; 2025-06-16)
PROC: 5A1935Z Respiratory Ventilation, Less than 24 Consecutive Hours (ICD-10-PCS; 2025-06-16)
PROC: 0T9B70Z Drainage of Bladder with Drainage Device, Via Natural or Artificial Opening (ICD-10-PCS; 2025-06-16)
PROC: 0DH67UZ Insertion of Feeding Device into Stomach, Via Natural or Artificial Opening (ICD-10-PCS; 2025-06-16)
PROC: 02HV33Z Insertion of Infusion Device into Superior Vena Cava, Percutaneous Approach (ICD-10-PCS; 2025-06-16)
DX: A41.89 Other specified sepsis (principal); I21.A1 Myocardial infarction type 2; J96.01 Acute respiratory failure with hypoxia; U07.1 COVID-19; J12.82 Pneumonia due to coronavirus disease 2019; N17.9 Acute kidney failure, unspecified; J44.1 Chronic obstructive pulmonary disease with (acute) exacerbation; E44.0 Moderate protein-calorie malnutrition; Z68.1 Body mass index [BMI] 19.9 or less, adult; E87.1 Hypo-osmolality and hyponatremia; R64 Cachexia; J44.0 Chronic obstructive pulmonary disease with (acute) lower respiratory infection; I47.20 Ventricular tachycardia, unspecified; I10 Essential (primary) hypertension; Z78.1 Physical restraint status; F41.0 Panic disorder [episodic paroxysmal anxiety]; G89.29 Other chronic pain; M19.90 Unspecified osteoarthritis, unspecified site; M79.7 Fibromyalgia; F41.1 Generalized anxiety disorder; E87.6 Hypokalemia; E83.39 Other disorders of phosphorus metabolism; I95.89 Other hypotension; I95.2 Hypotension due to drugs; T42.75XA Adverse effect of unspecified antiepileptic and sedative-hypnotic drugs, initial encounter; Z88.8 Allergy status to other drugs, medicaments and biological substances; Z88.2 Allergy status to sulfonamides; Z79.891 Long term (current) use of opiate analgesic; Z87.891 Personal history of nicotine dependence
CPT/HCPCS: 31500; 36415; 36556; 51702; 71045; 80048; 80053; 82803; 82947; 83605; 83735; 83880; 84100; 84145; 84484; 85025; 87040; 87637; 92610; 93005; 93010; 94002; 94003; 94640; 94660; 94664; 94760; 94761; 94762; 96365; 96372; 96375; 96376; 97161; 99285-25; A9270; C1751; G0378; J0248; J0360; J0692; J0696; J1100; J1650; J1938; J2060; J2250; J2470; J2704; J2919; J3010; J3475; J3480; J7030; J7050; J7060